=== PATIENT | female | born 1960 | race Caucasian/White ===

== ENCOUNTER 2020-07-22 18:22 | Emergency (ER) | payer MEDICARE, MEDICAID ==
[~2020-07-22] VITALS: Ht 170.2 cm; Wt 92.0 kg
[~2020-07-22 18:22] MED LIST: ACET325T14 PO; IBUP-1223 PO
[2020-07-22 18:39] VITALS: BP 133/73
[2020-07-22] MEDS ORDERED: HYDROcodone/APAP 5/325 TABLET ONE (18:56)
[2020-07-22] MEDS ORDERED: HYDROcodone/APAP 5/325 TABLET PO ONE (19:00)
--- NOTE | 2020-07-22 19:00 | NUR ---
Report received from CHRISTA Alvarado. This RN to assume care.
== END 2020-07-22 19:11 | disposition home or self-care (01) ==
LOC: ED 19:00
DX: M25.512 Pain in left shoulder (principal); R00.0 Tachycardia, unspecified; F17.200 Nicotine dependence, unspecified, uncomplicated; Z96.612 Presence of left artificial shoulder joint
CPT/HCPCS: 99283